=== PATIENT | female | born 1960 | race Caucasian/White ===

== ENCOUNTER → 2021-01-02 12:59 | Outpatient (CLI) | payer OTHER, SELFPAY ==
[2021-01-02 13:59] LABS: COVID19 -Nasal RAPID Negative (Negative)
== END ==
PROVIDERS: PCP Family Medicine; Referring Provider Internal Medicine; Visit Provider Internal Medicine
DX: R05 Cough (principal); Z20.822 Contact with and (suspected) exposure to COVID-19
CPT/HCPCS: 87635; C9803

== ENCOUNTER → 2021-01-02 14:42 | Outpatient (CLI) | payer OTHER, SELFPAY ==
--- NOTE | 2021-01-11 10:12 | PM.PFT.1 ---
Pulmonary Function Test Referral & Results Date Patient Seen: 01/02/21 Requesting provider: Radha Peralta Results: The spirometry demonstrates an FVC of 3.56 L which is 92% of predicted. The FEV1 was measured at 2.85 L which is 94% of predicted. The FEV1/FVC ratio was 80 which is 102% of predicted. Following the administration of bronchodilator there was no appreciable change to above normal numbers. Lung volumes show an SVC of 3.60 L which is 102% of predicted. The diffusing capacity was measured at 25.17 which is 84% of predicted. The maximum voluntary ventilation was normal Interpretation: This study demonstrates normal pulmonary function
== END ==
PROVIDERS: PCP Family Medicine; Referring Provider Family Medicine; Visit Provider Family Medicine
DX: R05 Cough (principal); Z20.822 Contact with and (suspected) exposure to COVID-19
CPT/HCPCS: 87635; 94060; 94726; 94729; C9803